=== PATIENT | female | born 1985 | race Two or more races ===

== ENCOUNTER 2021-08-06 10:52 | Emergency (ER) | payer MEDICAID, OTHER ==
[~2021-08-06] VITALS: Ht 165.1 cm; Wt 90.7 kg
[2021-08-06 11:49] VITALS: BP 108/61
[2021-08-06] MEDS ORDERED: ACET-1158 PO (12:40)
[2021-08-06] MEDS ORDERED: CEPH-509 PO (12:40)
== END 2021-08-06 13:31 | disposition home or self-care (01) ==
LOC: ER 10:52
DX: S61.214A Laceration without foreign body of right ring finger without damage to nail, initial encounter (principal); S61.216A Laceration without foreign body of right little finger without damage to nail, initial encounter; F17.210 Nicotine dependence, cigarettes, uncomplicated; F15.10 Other stimulant abuse, uncomplicated; X58.XXXA Exposure to other specified factors, initial encounter; Y93.89 Activity, other specified; Y92.89 Other specified places as the place of occurrence of the external cause; Y99.8 Other external cause status
CPT/HCPCS: 12001; 73130; 99283; J2001

== ENCOUNTER 2025-01-28 12:19 | Emergency (ER) | payer MEDICAID ==
[~2025-01-28] VITALS: Ht 165.1 cm; Wt 72.4 kg
[~2025-01-28 12:19] MED LIST: ACET500T58 PO; CEPH-509 PO
[2025-01-28 12:26] VITALS: BP 122/76; PULSE 90; RESP 16; TEMP 97.6; O2SAT 99
[2025-01-28 13:17] LABS: Hematocrit 36.0 % (36.0-46.0); Hemoglobin 11.5 g/dL (12.2-16.2); Mean Corpuscular Hemoglobin 25.3 pg (28.0-32.0); Mean Corpuscular Volume 79.2 fL (80.0-100.0); Nucleated Red Blood Cells % 0.0 %
--- NOTE | 2025-01-28 13:47 | ED.PDOC ---
SAP BPC ARCHITECT HPI Comments A 40 YEAR OLD FEMALE PRESENTS TO THE ED WITH COMPLAINT OF VAGINAL BLEEDING DURING . PATIENT STATES SHE IS CURRENTLY ABOUT 8 WEEKS AND EXPERIENCING MILD VAGINAL BLEEDING THAT STARTED TODAY. PATIENT DENIES DYSURIA, HEMATURIA, VAGINAL DISCHARGE, FEVER, CHILLS, SHORTNESS OF BREATH, CHEST PAIN, ABDOMINAL PAIN, NAUSEA, VOMITING, HEADACHE, OR OTHER COMPLAINTS. NO OTHER SYMPTOMS OR MODIFYING FACTORS AT THIS TIME. PATIENT IS ALERT, ORIENTED X 4, AND HAS STEADY GAIT. PT HAS SCHEDULED TO SEE HER SAP BPC ARCHITECT NEXT WEEK. Chief Complaint: Vaginal Bleed Time Seen by MD: 12:26 Reviewed Notes: Nurses Notes, Medications, Allergies Allergies: Coded Allergies: NO KNOWN ALLERGIES (Unverified , 08/06/21) Home Meds Active Scripts Acetaminophen (Acetaminophen) 500 Mg Tab, 500 MG PO QIDP, #30 TAB 0 Refills Prov:LUDY VALENTIN 08/06/21 Cephalexin (KEFLEX 500) 500 Mg Cap, 1 CAP PO BID for 7 Days, #14 CAP 0 Refills Prov:LUDY VALENTIN 08/06/21 Information Source: Patient Mode of Arrival: Ambulatory Timing: Days Prehospital treatment: None Severity: Mild Vaginal Discharge: None Vaginal Lesions: None Bleeding Quality: Bright Red Vaginal Mass: None Onset Of Mass/Bleeding: Spontaneous Sexual Activity: Last Consensual [place]: Unknown Control: None History of: Current Blood Type: Unknown Symptoms of Possible : None Associated Signs and Symptoms: Vaginal Bleeding Past Medical History PAST MEDICAL HISTORY: Denies Surgical History: Denies all surgeries CATALYTIC CASE OPERATOR History: No Pertinent CATALYTIC CASE OPERATOR History Family History Family History: Reviewed,noncontributory to illness Social History Smoker: Non-Smoker, Less Than 1 Pack/Day Alcohol: Occasionally Drugs: Methamphetamine Lives In: Home Constitutional: denies: chills, diaphoresis, fatigue, fever, malaise, sweats, weakness, others EENTM: denies: blurred vision, double vision, ear bleeding, ear discharge, ear drainage, ear pain, ear ringing, eye pain, eye redness, hearing loss, mouth pain , mouth swelling, nasal discharge, nose bleeding, nose congestion, nose pain, photophobia, tearing, throat pain, throat swelling, voice changes, others Respiratory: denies: cough, hemoptysis, orthopnea, SOB at rest, shortness of breath, SOB with excertion, stridor, wheezing, others Cardiovascular: denies: chest pain, dizzy spells, diaphoresis, Dyspnea on exertion, edema, irregular heart beat, left arm pain, lightheadedness, palpitations, PND, syncope, others Gastrointestinal: denies: abdomen distended, abdominal pain, blood streaked bowels, constipated, diarrhea, dysphagia, difficulty swallowing, hematemesis, melena, nausea, poor appetite, poor fluid intake, rectal bleeding, rectal pain, vomiting, others Genitourinary: reports: abnormal vagina bleeding, ; denies: burning, dyspareunia, dysuria, flank pain, frequency, hematuria, incontinence, pain, vagina discharge, urgency, others Neurological: denies: dizziness, fainting, headache, left sided numbness, left sided weakness, numbness, paresthesia, pre-existing deficit, right sided numbness, right sided weakness, seizure, speech problems, tingling, tremors, weakness, others Musculoskeletal: denies: back pain, gout, joint pain, joint swelling, muscle pain, muscle stiffness, neck pain, others Integumetry: denies: bruises, change in color, change in hair/nails, dryness, laceration, lesions, lumps, rash, wounds, others Allergic/Immunocompromised: denies: Difficulty Healing, Frequent Infections, Hives, Itching, others Hematologic/Lymphatic: denies: anemia, blood clots, easy bleeding, easy bruising, swollen glands, others Endocrine: denies: excessive hunger, excessive sweating, excessive thirst, excessive urination, flushing, intolerance to cold, intolerance to heat, unexplained weight gain, unexplained weight loss, others Psychiatric: denies: anxiety, bipolar disorder, depression, hopeless, panic disorder, schizophrenia, sleepless, suicidal, others All Other Systems: Reviewed and Negative Physical Exam General Appearance: No Apparent Distress, Normal HEENT: Normal ENT Inspection, PERRL/EOMI, Pharynx Normal, TMs Normal Neck: Full Range of Motion, Non-Tender, Normal, Normal Inspection Respiratory: Chest Non-Tender, Lungs Clear, No Accessory Muscle Use, No Respiratory Distress, Normal Breath Sounds Cardiovascular: No Edema, No JVD, No Murmur, No Gallop, Normal Peripheral Pulses, Regular Rate/Rhythm Breast Exam: Deferred Gastrointestinal: No Organomegaly, Non Tender, No Pulsatile Mass, Normal Bowel Sounds, Soft Genitalia: Deferred Pelvic: Normal External Exam, Vaginal Bleeding (MILD VAGINAL BLEEDING, NO VAGINAL BLOOD CLOTS AND FTEAL TISSUE SEEN. ) Rectal: Deferred Extremities: No calf tenderness, Normal capillary refill, Normal inspection, Normal range of motion, Non-tender, No pedal edema Musculoskeletal : Apperance: Normal Neurologic: Alert, vocational nursing instructor II-XII nml as Tested, No Motor Deficits, Normal Affect, Normal Mood, No Sensory Deficits Cerebellar Function: Normal Reflexes: Normal Skin: Dry, Normal Color, Warm Peripheral Pulses: 2+ carotid (R), 2+ carotid (L) Lymphatic: No Adenopathy Was a procedure done? Was a procedure done?: No Differential Diagnosis (CATALYTIC CASE OPERATOR) Vaginal Bleeding: - Complete, - Incomplete, - Threatened, UTI, Vaginitis Mass / Lesion: N/A Vaginal Discharge: N/A X-Ray, Labs, Meds, VS Vital Signs Date Time Temp Pulse Resp B/P (MAP) Pulse Ox O2 Delivery O2 Flow Rate FiO2 01/28/25 12:26 97.6 90 16 122/76 99 97.6 Lab Test 01/28/25 12:51 Range/Units White Blood Count 6.4 4.4-10.8 10^3/uL Red Blood Count 4.55 4.0-5.20 10^6/uL Hemoglobin 11.5 L 12.2-16.2 g/dL Hematocrit 36.0 36.0-46.0 % Mean Corpuscular Volume 79.2 L 80.0-100.0 fL Mean Corpuscular Hemoglobin 25.3 L 28.0-32.0 pg Mean Corpuscular Hemoglobin Concent 31.9 L 32.0-36.0 g/dL Red Cell Distribution Width 16.3 H 11.8-14.3 % Platelet Count 309 140-450 10^3/uL Mean Platelet Volume 7.9 6.9-10.8 fL Neutrophils (%) (Auto) 67.6 37.0-80.0 % Lymphocytes (%) (Auto) 22.3 10.0-50.0 % Monocytes (%) (Auto) 6.7 0.0-12.0 % Eosinophils (%) (Auto) 2.2 0.0-7.0 % Basophils (%) (Auto) 1.2 0.0-2.0 % Neutrophils # (Auto) 4.3 1.6-8.6 10 ^3/uL Lymphocytes # (Auto) 1.4 0.4-5.4 10 ^3/uL Monocytes # (Auto) 0.4 0-1.3 10 ^3/uL Eosinophils # (Auto) 0.1 0-0.8 10 ^3/uL Basophils # (Auto) 0.1 0-0.2 10 ^3/uL Nucleated Red Blood Cells 0.0 % Beta HCG, Quantitative 9804.0 H 1.5-4.2 mIU/mL OB ULTRASOUND <14 WEEKS: HISTORY: MILD VAGINAL BLEEDING, 8 WEEKS TECHNIQUE: Multiple real-time grayscale sonographic images of the pelvis with duplex Doppler color flow, spectral and M-mode analysis. TRANSDUCERS: Transabdominal and transvaginal COMPARISON: None FINDINGS: The uterus measures 9.6 x 6.7 x 6.8 cm The cervix is not visualized Right ovary measures 2.7 x 2.2 x 1.3 cm with normal Doppler color flow. Left ovary measures 2.4 x 2.4 x 2.1 cm with normal Doppler color flow. Possible IUP single fetus at 7 weeks and 0 days average ultrasound age based on mean crown-rump length of 0.4 cm and gestational sac size of 3.0 cm heart rate detected at 0 beats per minute. Abnormal appearing yolk sac. Jennie-gestational space: Unremarkable IMPRESSION: Abnormal appearance of gestational sac with internal debris and abnormally enlarged appearance of the yolk sac. Findings are likely accounts payable representative of spontaneous . Close clinical and sonographic follow-up advised. Recommend correlation with serial beta HCG. Alternative differential considerations could also include early gestational state. ATED BY: PRABHJOT COPELAND MD DICTATED DATE/TIME: 01/28/251454 SIGNED BY: PRABHJOT COPELAND MD SIGNED DATE/TIME: 01/28/251454 CC: X-Ray, Labs, Meds, VS Comment EXTERNAL MEDICAL RECORDS REVIEWED: [NONE] INDEPENDENT HISTORIANS: [NONE] SOCIAL DETERMINANTS OF HEALTH: [NONE] LABS ORDERED: CBC, UA, BETA HCG QUANT REVIEWED AND INTERPRETED RESULTS: IMAGING ORDERED: NONE TREATMENTS ORDERED: PROCEDURES PERFORMED: NONE CRITICAL CARE TIME: NONE I HAVE DISCUSSED THE PATIENT WITH THE ATTENDING PHYSICIAN DR. DONOVAN AND HE AGREES WITH THE PATIENT'S PLAN OF CARE AND DISPOSITION. BASED ON HISTORY OF PRESENT ILLNESS, AND PHYSICAL EXAM, PATIENT WILL BE DISCHARGED HOME AND F/U SAP BPC ARCHITECT IN NEXT WEEK. . SHARED DECISION MAKING: DISCUSSED WITH PATIENT THAT THEIR WORKUP WAS NORMAL. PATIENT INSTRUCTED TO FOLLOW UP WITH SAP BPC ARCHITECT IN 2 DAYS RECHECK FOR RE-EVALUATION OF SYMPTOMS. PATIENT VERBALIZES UNDERSTANDING TO RETURN TO ED FOR NEW OR WORSENING SYMPTOMS OR IF FOLLOW UP WITH PCP CANNOT BE OBTAINED. PATIENT FEELS COMFORTABLE GOING HOME AT THIS TIME. ALL QUESTIONS ADDRESSED AT TIME OF DISCHARGE. Images Reviewed?: Images reviewed and evaluated by me Time of 1ST Reevaluation: 15:40 Reevaluation 1ST: Improved Consultation: medical records administrator ([id number]: I HAVE CONSULTED THE ON-CALL SAP BPC ARCHITECT DR. MARTINEZ REGARDING THE PATIENT'S CASE AND ULTRASOUND RESULTS AND SHE HAS SAID THE PATIENT'S RESULTS REVEAL EITHER THREATENED VERSUS NONVIABLE . INDTRUCTED PT TO F/U HER SAP BPC ARCHITECT IN 2 DAYS RECHECK. ) Patient Education/Counseling: Diagnosis, Treatment, Need For Follow Up Family Education/Counseling: Diagnosis, Treatment, Need For Follow Up Medical Screening: No EMC Exist At This Time Departure 1 Departure Time of Disposition: 15:40 Impression: Primary Impression: Vaginal bleeding Additional Impressions: Threatened Non-viable Disposition: 01 HOME / SELF CARE / HOMELESS Condition: Stable Additional Instructions: FOLLOW-UP WITH PCP AND SAP BPC ARCHITECT IN 1 TO 2 DAYS. RETURN TO ED FOR ANY NEW OR WORSENING SYMPTOMS. Discharged With: Self Critical Care Note Critical Care Time?: No Stability Stability form required: No I personally scribed for GUERRERO SANDHU ([email or web address]) on 01/28/25 at 13:47. Electronically submitted by Munir Medrano ([email or web address]). I personally scribed for GUERRERO SANHDU ([email or web address]) on 01/28/25 at 15:32. Electronically submitted by Munir Medrano ([email or web address]). GUERRERO SANDHU Jan 28, 2025 13:47
--- NOTE | 2025-01-28 14:58 | DVH ---
OB ULTRASOUND <14 WEEKS: HISTORY: MILD VAGINAL BLEEDING, 8 WEEKS TECHNIQUE: Multiple real-time grayscale sonographic images of the pelvis with duplex Doppler color f low, spectral and M-mode analysis. TRANSDUCERS: Transabdominal and transvaginal COMPARISON: None FINDINGS: The uterus measures 9.6 x 6.7 x 6.8 cm The cervix is not visualized Right ovary measures 2.7 x 2.2 x 1.3 cm with normal Doppler color flow. Left ovary measures 2.4 x 2.4 x 2.1 cm with normal Doppler color flow. Possible IUP single fetus at 7 weeks and 0 days average ultrasound age based on mean crown-rump ernesto th of 0.4 cm and gestational sac size of 3.0 cm heart rate detected at 0 beats per minute. Abnormal appearing yolk sac. Jennie-gestational space: Unremarkable IMPRESSION: Abnormal appearance of gestational sac with internal debris and abnormally enlarged appearance of the yolk sac. Findings are likely medical billing representative of spontaneous . Close clinical and sonographic follow-up advised. Recommend correlation with serial beta HCG. Alternative differential considerations could also include early gestational state.
[2025-01-28 17:59] LABS: Urine Protein, UAD Negative (Negative)
== END 2025-01-28 15:33 | disposition home or self-care (01) ==
LOC: ER 12:19
DX: O26.851 Spotting complicating pregnancy, first trimester (principal); O20.0 Threatened abortion; F19.90 Other psychoactive substance use, unspecified, uncomplicated; F10.90 Alcohol use, unspecified, uncomplicated; Z79.899 Other long term (current) drug therapy; Z3A.08 8 weeks gestation of pregnancy; Y90.9 Presence of alcohol in blood, level not specified
CPT/HCPCS: 36415; 76801; 76817; 81001; 84702; 85025

== ENCOUNTER 2025-01-29 02:55 | Emergency (ER) | payer MEDICAID ==
[~2025-01-29] VITALS: Ht 165.1 cm; Wt 75.2 kg
[2025-01-29 03:03] VITALS: BP 118/80; PULSE 90; RESP 15; TEMP 97.9; O2SAT 99
[2025-01-29 03:29] LABS: Hematocrit 34.1 % (36.0-46.0); Hemoglobin 11.0 g/dL (12.2-16.2); Mean Corpuscular Hemoglobin 25.5 pg (28.0-32.0); Mean Corpuscular Volume 79.3 fL (80.0-100.0); Nucleated Red Blood Cells % 0.0 %
[2025-01-29 03:39] LABS: Chloride 105 mmol/L (98-107); Potassium 3.9 mmol/L (3.5-5.1); Sodium 139 mmol/L (136-145)
[2025-01-29 03:40] LABS: Anion Gap 7 (5-15); Calcium 9.0 mg/dL (8.7-10.4); Carbon Dioxide 27 mmol/L (20-31)
--- NOTE | 2025-01-29 03:41 | ED.PDOC ---
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 Patient is a ap proximately 8 weeks . Patient was seen here yesterday for vaginal bleeding, ultrasound revealed spontaneous . At home persistence of abdominal cramping with worsening vaginal bleeding with clots prompted patient to come to the ER REVIEW OF SYSTEMS: General: No fever, no chills, or fatigue HEENT: No sore throat, no earache, no congestion, no neck pain. Cardiac: No chest pain. No palpitations. Lungs: No shortness of breath, no cough. GI: No nausea, no vomiting, no diarrhea, no constipation,(+) abdominal pain : No dysuria, frequency, or urgency. No hematuria. (+) vaginal bleeding Musculoskeletal: No joint pain , no joint swelling, no extremity edema. Skin: No rash, no itching. Neuro: No headache, no dizziness, no weakness EXAM: General: Awake, alert and oriented. No acute distress. Skin: Skin in warm, dry and intact. Appropriate color for ethnicity. HEENT: The head is normocephalic and atraumatic. Conjunctivae are clear without exudates or hemorrhage. Sclera is non-icteric. EOM are intact. No signs of nystagmus. Eyelids are normal in appearance without swelling or lesions. Oral mucosa is pink and moist Neck: The neck is supple with normal range of motion. No JVD. Cardiac: Heart rate and rhythm are normal. No murmurs, gallops, or rubs are auscultated. Respiratory: No signs of respiratory distress. Lung sounds are clear in all lobes bilaterally without rales, rhonchi, or wheezes. Abdominal: Abdomen is soft, non-tender without distention. Bowel sounds are present and normoactive in all four quadrants. Extremities: Upper and lower extremities are atraumatic in appearance without deformity or edema. Neurological: The patient is awake, alert and oriented to person, place, and time with normal speech. Speech is clear. There is no facial asymmetry. Psychiatric: Appropriate mood and affect. Good judgement and insight Chief Complaint: Abdominal Pain Time Seen by MD: 03:40 Reviewed Notes: Nurses Notes Allergies: Coded Allergies: NO KNOWN ALLERGIES (Unverified , 08/06/21) Home Meds Active Scripts Acetaminophen (Acetaminophen) 500 Mg Tab, 500 MG PO QIDP, #30 TAB 0 Refills Prov:FAVOT,LUDY PA 08/06/21 Cephalexin (KEFLEX 500) 500 Mg Cap, 1 CAP PO BID for 7 Days, #14 CAP 0 Refills Prov:HOMEROLUDY VIVIAN 08/06/21 Information Source: Patient Mode of Arrival: Ambulatory Past Medical History PAST MEDICAL HISTORY: Denies Surgical History: Denies all surgeries PICK UP AND DELIVERY DRIVER History: No Pertinent PICK UP AND DELIVERY DRIVER History 3 Para 2 Family History Family History: Reviewed,noncontributory to illness Social History Smoker: Non-Smoker, Less Than 1 Pack/Day Alcohol: Occasionally Drugs: Denies Drug Use Lives In: Home Was a procedure done? Was a procedure done?: No Differential Diagnosis (PICK UP AND DELIVERY DRIVER) Vaginal Bleeding: - Incomplete, - Inevitable, - Missed, - Threatened, Blood Loss Anemia, Ectopic X-Ray, Labs, Meds, VS Vital Signs Date Time Temp Pulse Resp B/P (MAP) Pulse Ox O2 Delivery O2 Flow Rate FiO2 01/29/25 03:03 97.9 90 15 118/80 99 97.9 Lab Test 01/29/25 03:19 Range/Units White Blood Count 8.3 # 4.4-10.8 10^3/uL Red Blood Count 4.30 4.0-5.20 10^6/uL Hemoglobin 11.0 L 12.2-16.2 g/dL Hematocrit 34.1 L 36.0-46.0 % Mean Corpuscular Volume 79.3 L 80.0-100.0 fL Mean Corpuscular Hemoglobin 25.5 L 28.0-32.0 pg Mean Corpuscular Hemoglobin Concent 32.2 32.0-36.0 g/dL Red Cell Distribution Width 16.3 H 11.8-14.3 % Platelet Count 320 140-450 10^3/uL Mean Platelet Volume 8.0 6.9-10.8 fL Neutrophils (%) (Auto) 67.5 37.0-80.0 % Lymphocytes (%) (Auto) 22.9 10.0-50.0 % Monocytes (%) (Auto) 6.4 0.0-12.0 % Eosinophils (%) (Auto) 2.4 0.0-7.0 % Basophils (%) (Auto) 0.8 0.0-2.0 % Neutrophils # (Auto) 5.6 1.6-8.6 10 ^3/uL Lymphocytes # (Auto) 1.9 0.4-5.4 10 ^3/uL Monocytes # (Auto) 0.5 0-1.3 10 ^3/uL Eosinophils # (Auto) 0.2 0-0.8 10 ^3/uL Basophils # (Auto) 0.1 0-0.2 10 ^3/uL Nucleated Red Blood Cells 0.0 % Sodium Level 139 136-145 mmol/L Potassium Level 3.9 3.5-5.1 mmol/L Chloride Level 105 98-107 mmol/L Carbon Dioxide Level 27 20-31 mmol/L Anion Gap 7 5-15 Blood Urea Nitrogen 14 9-23 mg/dL Creatinine 0.60 0.550-1.02 mg/dL Glomerular Filtration Rate Calc 118 >90 mL/min BUN/Creatinine Ratio 23.3 H 10.0-20.0 Serum Glucose 94 74-106 mg/dL Calcium Level 9.0 8.7-10.4 mg/dL Beta HCG, Quantitative 6836.5 H 1.5-4.2 mIU/mL Time of 1ST Reevaluation: 03:36 Reevaluation 1ST: Unchanged Patient Education/Counseling: Need For Follow Up Family Education/Counseling: No Family Present Departure 1 Departure Time of Disposition: 05:06 Impression: Primary Impression: Miscarriage Disposition: 01 HOME / SELF CARE / HOMELESS Condition: Stable Additional Instructions: ED DISCHARGE INSTRUCTIONS Instructions: Please read all instructions provided in this packet carefully. Although you have been discharged from the Emergency Department, this does not mean that you have a "clean bill of health". No definitive diagnosis for your symptoms has been made today. It is possible that you are in the process of developing a serious illness. This is why you must return to the ED without fail if any new or worsening symptoms (especially if your symptoms include chest pain , trouble breathing, abdominal pain, fever, headache, confusion, trouble seeing, or trouble walking) It is also very important that you see a primary care provider (PCP) within the next 1-3 days to follow up. If you are unable to get an appointment, return to the ED for re-evaluation. Miscarriage: Care Instructions For some, the loss of a can be very hard. You may wonder why it happened. Miscarriages are common and are not caused by things like exercise or sex. Most happen because the embryo doesn't develop properly. There is no treatment that can stop a miscarriage. If you are having a miscarriage, you have several options. As long as you do not have heavy blood loss, fever, weakness, or other signs of infection, you can let a miscarriage f ollow its own course. This can take several days. If you don't want to wait, you can take medicine to help the tissue pass. Or you can have a surgical procedure to remove the tissue. Your body will recover over the next several weeks. Having a miscarriage does not mean you cannot have a normal in the future. Follow-up care is a zhang part of your treatment and safety. Be sure to make and go to all appointments, and contact your doctor if you are having problems. It's also a good idea to know your test results and keep a list of the medicines you take. How can you care for yourself at home? You will probably have some vaginal bleeding for 1 to 2 weeks. It may be similar to or slightly heavier than a normal period. The bleeding should get shade matcher after a week. Use sanitary pads until you stop bleeding. Using pads makes it easier to monitor your bleeding. Take an [id number] pain medicine, such as acetaminophen (Tylenol), ibuprofen (Advil, Motrin), or naproxen (Aleve) for cramps. Read and follow all instructions on the label. You may have cramps for several days after the miscarriage. Do not take two or more pain medicines at the same time unless the doctor or farm mechanic told you to. Many pain medicines have acetaminophen, which is Tylenol. Too much acetaminophen (Tylenol) can be harmful. Ask your doctor or farm mechanic when it is okay for you to have sex. You may return to your normal activities if you feel well enough to do so. If you would like to try to get again, it is usually safe whenever you feel ready. Talk with your doctor or farm mechanic about any future plans. If you do not want to get , ask your doctor or farm mechanic about control. You can get again before your next period starts if you are not using control. You may be low in iron because of blood loss. Eat a variety of healthy foods and choose foods high in iron and vitamin C. Foods rich in iron include red meat, shellfish, eggs, beans, and leafy green vegetables. Foods high in vitamin C include citrus fruits, tomatoes, and broccoli. Talk to your doctor or farm mechanic about whether you need to take iron pills or a multivitamin. For some, the loss of a can be very hard. You may have a range of emotions. If you need help coping, talking to family members, friends, a counselor, or your doctor or farm mechanic may help. You can also call the Maternal Mental Health Hotline at 6-407-[facility] ( ) for support. If you feel very sad or depressed for longer than a couple of weeks, talk to a coun selor or your doctor or farm mechanic. When should you call for help? Call 911 anytime you think you may need emergency care. For example, call if: You have severe vaginal bleeding. You have soaked through one or more pads in an hour, and the bleeding is not slowing down. You have severe pain in your belly or pelvis. You have severe dizziness or lightheadedness, or you passed out (lost consciousness). You suddenly feel confused or have trouble staying awake. You have trouble breathing. You feel you cannot stop from hurting yourself or someone else. Where to get help 24 hours a day, 7 days a week If you or someone you know talks about suicide, self-harm, a mental health crisis, a substance use crisis, or any other kind of emotional distress, get help right away. You can: Call or text the Suicide and Crisis Lifeline at [facility]. Text HOME to 050949 to access the Crisis Text Line. Consider saving these numbers in your phone. Go to [facility] for more information or to chat online. Contact your doctor or farm mechanic now or seek immediate medical care if: You have heavy vaginal bleeding. This means that you are soaking through one or more pads in an hour. Or you pass blood clots bigger than an egg. You are dizzy or lightheaded, or you feel like you may faint. You have new or worse pain in your belly or pelvis. You have a fever. You have vaginal discharge that smells bad. Watch closely for changes in your health, and be sure to contact your doctor or farm mechanic if: You do not get better as expected. Credits for Miscarriage: Care Instructions Current as of: November 16, 2024 Author: [employer] Staff Clinical Review Board All [employer] education is reviewed by a team that includes physicians, nurses, advanced practitioners, registered dieticians, and other healthcare professionals. Comments Patient eloped from the emergency department prior to discussing results and discharge/follow up plan. Critical Care Note Critical Care Time?: No Stability Stability form required: No I personally scribed for BART CONTE MD ([email or web address]) on 01/29/25 at 03:41. Electronically submitted by Rigoberto Smith ([email or web address]). BART CONTE MD Jan 29, 2025 03:41
[2025-01-29 03:45] LABS: BUN/Creatinine Ratio 23.3 (10.0-20.0); Blood Urea Nitrogen 14 mg/dL (9-23); Glucose 94 mg/dL (74-106)
== END 2025-01-29 05:13 | disposition left against medical advice (07) ==
LOC: ER 02:55
DX: O03.4 Incomplete spontaneous abortion without complication (principal); D50.0 Iron deficiency anemia secondary to blood loss (chronic); R10.2 Pelvic and perineal pain; Z3A.08 8 weeks gestation of pregnancy
CPT/HCPCS: 36415; 80048; 84702; 85025; 99283; J7030